=== PATIENT | male | born 1960 | race African-American/Black ===

== ENCOUNTER 2016-09-28 08:15 | Emergency (ER) | payer OTHER, MEDICARE ==
[~2016-09-28] VITALS: Ht 190.5 cm; Wt 102.1 kg
[~2016-09-28 08:15] MED LIST: ALBUTEROL 3 ML3 ML INH; AMITRIPTYLINE H50 M2 PO; ATORVASTATIN CA20 MG PO; ATORVASTATIN CA40 MG PO; CATAPRES 0.1MG0.1 MG PO; CHILDREN'S ASPI81 M1 PO; CYCLOBENZAPRINE10 M1 PO; FENOFIBRIC ACID45 M1 PO; FERROUS SULFAT325 M3 PO; FUROSEMIDE40 MG PO; LANTUS SOLOS100 U/ML SC; LASIX20 MG PO; LASIX80 M1 PO; LEVEMIR 10100 UNITS/ SC; LOPRESSOR 25MG25 MG PO; LOSARTAN POTASS50 MG PO; LYRICA100 M1 PO; MIRALAX17 GM PO; NEPHROCAPS1 TAB PO; NIFEDICAL XL60 MG PO; NOVOLOG 10300 UNITS/; NOVOLOG100 U/ML SC; OMEPRAZOLE20 M2 PO; PERCOCET 325 MG1 TA2 PO; PERCOCET 5-3251 EACH PO; PLAVIX 75MG TAB75 MG PO; PROCARDIA XL30 MG PO; RENVELA800 MG PO; Senokot S PO; TRAMADOL HCL50 M1 PO; TRANDATE-NORMO100 MG PO; Transderm Nitro 10MG (0.4 MG/Hr) Patch TOP; ZAROXOLYN 2.5M2.5 MG PO
[2016-09-28] MEDS ORDERED: RENVELA800 M1 PO ×2 (08:43→08:44)
[2016-09-28] MEDS ORDERED: ATORVASTATIN CA40 M1 PO (08:46)
[2016-09-28] MEDS ORDERED: TRIPHROCAPS SOFT1 MG PO (08:48)
[2016-09-28] MEDS ORDERED: CLONIDINE HCL0.1 MG PO (08:49)
[2016-09-28] MEDS ORDERED: NIFEDIPINE ER60 M2 PO (08:51)
--- NOTE | 2016-09-28 08:51 | ED CARDIAC/CP/PALPITATIONS ---
History of Present Illness General Chief Complaint: Chest Pain Stated Complaint: CP Source: patient Exam Limitations: no limitations Vital Signs & Intake/Output Vital Signs & Intake/Output Vital Signs Date Time Temp Pulse Resp B/P Pulse O2 O2 Flow FiO2 Ox Delivery Rate 09/28 1544 98.2 88 20 142/65 96 Room Air 09/28 1306 89 20 178/86 96 Room Air Room Air 09/28 1219 97.7 93 18 170/76 93 09/28 1211 97.5 09/28 0838 98 Room Air Room Air 09/28 0823 97.5 97 16 183/87 94 Room Air Allergies Coded Allergies: lactose (INTOLERANCE 09/15/15) Reconcile Medications Amitriptyline HCl 50 MG TABLET 1 TAB PO BID DEPRESSION (Reported) Aspirin (Children's Aspirin) 81 MG TAB.CHEW 1 TAB PO DAILY HEART HEALTH ( Reported) Atorvastatin Calcium 40 MG TABLET 1 TAB PO DAILY CHOLESTEROL (Reported) B Complex & C No.20/Folic Acid (Triphrocaps Softgel) 1 MG CAPSULE 1 CAP PO DAILY SUPPLEMENT (Reported) Clonidine HCl 0.1 MG TABLET 1 TAB PO BID BP (Reported) Clopidogrel Bisulfate (Clopidogrel) 75 MG TABLET 1 TAB PO DAILY BLOOD THINNER (Reported) Cyclobenzaprine HCl 10 MG TABLET 1 TAB PO QPM PRN SPASM Fenofibric Acid (Choline) (Fenofibric Acid) 45 MG CAPSULE.DR 1 CAP PO DAILY CHOLESTEROL (Reported) Ferrous Sulfate 325 MG (65 MG IRON) TABLET 1 TAB PO DAILY SUPPLEMENT ( Reported) Furosemide (Lasix) 80 MG TABLET 1 TAB PO DAILY EDEMA (Reported) Insulin Aspart, Recombinant (Novolog Flexpen) (Unknown Strength) INSULN.PEN ( Unknown Dose) SEE SLIDING SCALE DM (Reported) Insulin Glargine,Hum.rec.anlog (Lantus Solostar) 100 UNIT/ML (3 ML) INSULN.PEN 26 UNIT SC BID DM (Reported) Lidocaine HCl (Lidocaine HCl Viscous) 2 % SOLUTION 15 ML PO 4 TIMES/DAY REFLUX Nephro-Vitamins (Nephro-Ancelmo Tablet) 0.8 MG TABLET 1 TAB PO DAILY KIDNEYS ( Reported) Nifedipine (Nifedipine ER) 60 MG TAB.ER.24 1 TAB PO BID HEART (Reported) Nitroglycerin (Nitro-Dur) 0.4 MG/HOUR PATCH.TD24 1 PAT TOP DAILY CHEST PAIN ( Reported) Omeprazole 20 MG CAPSULE.DR 2 CAP PO DAILY GI (Reported) Pregabalin (Lyrica) 100 MG CAPSULE 1 CAP PO BID PAIN (Reported) Ranitidine HCl (Zantac) 150 MG TABLET 1 TAB PO BID ACID REFLUX Sevelamer Carbonate (Renvela) 800 MG TABLET 2 TAB PO BID KIDNEYS (Reported) Sevelamer Carbonate (Renvela) 800 MG TABLET 3 TAB PO 1200 KIDNEYS (Reported) Tamsulosin HCl 0.4 MG CAP.ER.24H 1 CAP PO DAILY PROSTATE (Reported) Tramadol HCl 50 MG TABLET 2 TAB PO BID PAIN (Reported) Triage Note: 56 Y/O MALE C/O MID STERNAL CHEST PAIN SINCE 5PM LAST NIGHT; STATES "I THOUGHT IT WAS HEART BURN BUT I CAN FEEL THE PAIN IN MY BACK NOW". REPORTS SOB WELL. PT STATES HE SLEPT "OFF AND ON" LAST NIGHT DUE TO PAIN. EKG COMPLETE PRIOR TO TRIAGE: NORMAL SINUS. PT DIALYSIS PATIENT, STATES HE WENT MONDAY DUE TO STORM, DUE TO GO AGAIN TOMORROW. L ARM RESTRICTED, BAND PLACED Triage Nurses Notes Reviewed? yes Onset: Abrupt Duration: day(s): ( 5PM LAST NIGHT) Timing: recent history Quality/Severity: moderate, severe Location: central, epigastric Radiation: back Activities at Onset: none HPI: 56-year-old male comes into emergency room with complaints of epigastric/central chest pain has been going on since 5 PM last night. Denies any shortness of breath. Denies any nausea vomiting. Denies any fever or chills. Denies any cough. Nothing seems to make the symptoms better. Lying flat makes it worse. Patient is on dialysis Monday and Saturdays. History of prior heart attack. Sees Dr. Mcmillan from cardiology. Symptoms are not worse with any type of exertion. Denies any other associated symptoms at this time. (JORGE WETZEL) Past History Travel History Traveled to [place] past 21 day No Medical History Any Pertinent Medical History? see below for history Neurological: NONE EENT: NONE Cardiovascular: CHF, hypertension, hyperlipidemia, STEMI Respiratory: pneumonia Gastrointestinal: NONE Hepatic: NONE Renal: chronic kidney disease, dialysis Musculoskeletal: NONE (arthritis) Psychiatric: NONE, depression Endocrine: diabetes, peripheral neuropathy Blood Disorders: NONE Cancer(s): NONE EXTRUSION FORMER/Reproductive: NONE History of MRSA: No History of VRE: No History of CDIFF: No Surgical History Surgical History: non-contributory Psychosocial History Who do you live with Patient/Self Services at Home Physical Therapy What is your primary language Chadian Tobacco Use: Current Not Daily Family History Family History, If Any: MOTHER Diabetes mellitus (DM) FH: chronic renal disease Hx Contributory? No (JORGE WETZEL) Review of Systems Review of Systems Constitutional: Reports: no symptoms. EENTM: Reports: no symptoms. Respiratory: Reports: no symptoms. Cardiovascular: Reports: see HPI. GI: Reports: no symptoms. Genitourinary: Reports: no symptoms. Musculoskeletal: Reports: no symptoms. Skin: Reports: no symptoms. Neurological/Psychological: Reports: no symptoms. Hematologic/Endocrine: Reports: no symptoms. Immunologic/Allergic: Reports: no symptoms. All Other Systems: Reviewed and Negative (JORGE WETZEL) Physical Exam Physical Exam General Appearance: well developed/nourished, no apparent distress, alert, awake Head: atraumatic, normal appearance Eyes: Bilateral: normal appearance, EOMI. Ears, Nose, Throat: normal pharynx, normal ENT inspection Neck: normal inspection, full range of motion Respiratory: normal breath sounds, no respiratory distress Cardiovascular: regular rate/rhythm Gastrointestinal: soft, tenderness (EPIGASTRIC) Back: normal inspection Extremities: normal inspection, normal range of motion Neurologic/Psych: awake, alert, oriented x 3, normal gait, normal mood/affect Skin: intact, normal color Core Measures ACS in differential dx? Yes Severe Sepsis Present: No Septic Shock Present: No (JORGE WETZEL) Progress Differential Diagnosis: AMI, aortic dissection, cholecystitis, CHF/pulm edema, hypovolemia, hyperthyroid, hyperventilation, musculoskeletal pain, myocarditis, pancreatitis, pericarditis, pneumothorax, pulmonary embolism, PUD/GERD, PVCs/ PACs, respiratory failure, sepsis, unstable angina, V-fib/V-Tach, WPW syndrome Plan of Care: Orders Procedure Date/time Status TROPONIN LEVEL 09/28 1315 Complete EKG 09/28 1315 Active LIPASE 09/28 0910 Complete AMYLASE 09/28 0910 Complete Telemetry/Landscape Horticulture Instructor 09/28 0831 Active TROPONIN LEVEL 09/28 0824 Complete COMPREHENSIVE METABOLIC PANEL 09/28 0824 Complete CBC WITHOUT DIFFERENTIAL 09/28 0824 Complete EKG 09/28 0817 Active Current Medications Sig/Nam Start time Last Medication Dose Stop Time Status Admin Ketorolac 60 MG ONCE ONE 09/28 1300 CAN Tromethamine 09/28 1301 (Toradol) Laboratory Tests 09/28/16 1330: Troponin I < 0.01 09/28/16 0910: Amylase Cancelled, Lipase Cancelled 09/28/16 0910: Anion Gap 18 H, Estimated GFR 5 L, BUN/Creatinine Ratio 3.8 L, Glucose 146 H , Calcium 8.7, Total Bilirubin 0.5, AST 19, ALT 27, Alkaline Phosphatase 75, Troponin I < 0.01, Total Protein 7.7, Albumin 4.3, Globulin 3.4, Albumin/ Globulin Ratio 1.3, Amylase 82, Lipase 116, CBC w Diff MAN DIFF ORDERED, RBC 4.50 L, MCV 93.0, MCH 30.5, RDW 13.6, MPV 8.5, Gran % 84.0 H, Lymphocytes % 9.0 L, Monocytes % 5.4, Eosinophils % 1.6, Basophils % 0 L, Absolute Granulocytes 7.4 H, Absolute Lymphocytes 0.8 L, Absolute Monocytes 0.5, Absolute Eosinophils 0.1, Absolute Basophils 0, Platelet Estimate VERIFIED BY SMEAR, Normocytic RBCs VERIFIED, Normochromic RBCs VERIFIED, PUBS MCHC 32.8 L Diagnostic Imaging: Viewed by Me: Radiology Read. Discussed w/RAD: Radiology Read. Radiology Impression: SERVICE DATE: 09/28/16 EXAM TYPE: RAD - XRY-CHEST XRAY, PA AND LATERAL EXAMINATION: XR CHEST CLINICAL INFORMATION: Chest pain COMPARISON: Previous chest x-rays most recent May 2016 TECHNIQUE: 2 views of the chest were obtained. FINDINGS: The cardiac and mediastinal contours are stable. The lungs are clear. There is no pleural effusion or pneumothorax. There are degenerative changes of the spine. IMPRESSION: No evidence for acute disease in the chest. Initial ED EKG: normal intervals, normal p-waves, normal sinus rhythm (94) Repeat EKG: unchanged (JORGE WETZEL) Departure Departure Disposition: HOME OR SELF CARE Condition: Stable Clinical Impression Primary Impression: Atypical chest pain Secondary Impressions: Gastritis Referrals: WAYNE GILLIS (PCP/Family) Additional Instructions: Take Viscous Lidocaine and Zantac as prescribed. Follow-up with [facility] for upper endoscopy. Return if any other concerns worsening symptoms. Please go over all results of today's visit with your primary care doctor. Contact your primary care doctor to let them know you were here in the emergency room. There may be nonspecific findings which may not be related to your visit today here in the emergency room but may require further evaluation and chronic monitoring by your primary care doctor. If you had a laceration today the chance of foreign body always remains. You should follow-up with your primary care doctor for recheck in 3-5 days for a wound check. If you had an x-ray done there is a chance that a fracture could have been missed on initial read and you should follow-up with your primary care doctor for repeat x-rays if symptoms persist. If your blood pressure was elevated here in the emergency room please have rechecked by her primary care doctor within the next 48 hours by your primary care doctor. If you were prescribed a narcotic here in the emergency room or any type of controlled substances you're not allowed to drive while taking this medication or operate any type of heavy machinery. Narcotics can make you feel lightheaded dizziness nausea and can cause constipation. You may need to clam picker a stool softener. Thank you for choosing [facility] emergency room. Please return to the emergency room immediately if you have any other concerns worsening of symptoms. Departure Forms: Customer Survey General Discharge Information Prescriptions: Current Visit Scripts Lidocaine HCl (Lidocaine HCl Viscous) 15 ML PO 4 TIMES/DAY #100 ML Ranitidine HCl (Zantac) 1 TAB PO BID #60 TAB Comments 09/28/2016 5:08:02 PM Patient clinically looks well. Nontoxic-appearing. In no apparent distress. Resting comfortably in room. Patient was reevaluated multiple times here in the emergency room. Cardiology Dr. Calderon was consult. Patient was seen and evaluated by Dr. Quinn. Patient's symptoms significantly improved after GI cocktail. I feel symptoms are most related to gastritis. Negative Merida sign. No suspicion for cholecystitis. Normal LFTs. Due to cardiac history two EKGs and troponins were performed which were both unchanged. Patient clinically feels much better. Patient is able to be discharged this time with follow-up with Dr. Mcmillan as well as primary care doctor. This patient required complex medical decision-making. As stated before patient was reevaluated multiple times and understands and agrees with plan of care. Return if any other concerns. (JORGE WETZEL) Departure Comments 09/28/16 I saw and personally examined the patient and I agree with the PAs evaluation. He has 2 negative troponins. 2 unchanged EKGs. His symptoms improved with GI cocktail. He'll follow-up with his bung remover this week. Return to the emergency department if worse. (RYAN DAVID,CHELSEY Lopez) Critical Care Note Critical Care Note Critical Care Time: non-applicable (JORGE WETZEL)
[2016-09-28] MEDS ORDERED: TAMSULOSIN HCL0.4 M1 PO (08:52)
[2016-09-28] MEDS ORDERED: LANTUS SOL100 UNIT/1 SC (08:53)
[2016-09-28] MEDS ORDERED: NOVOLOG FL100 UNIT/1 (08:54)
[2016-09-28] MEDS ORDERED: CLOPIDOGREL75 M1 PO (08:57)
[2016-09-28] MEDS ORDERED: NEPHRO-VITE TA0.8 MG PO (08:59)
[2016-09-28] MEDS ORDERED: NITRO-DUR1 EAC3 TOP (09:01)
--- NOTE | 2016-09-28 09:05 | RADIOLOGY REPORT ---
EXAMINATION: XR CHEST CLINICAL INFORMATION: Chest pain COMPARISON: Previous chest x-rays most recent May 2016 TECHNIQUE: 2 views of the chest were obtained. FINDINGS: The cardiac and mediastinal contours are stable. The lungs are clear. There is no pleural effusion or pneumothorax. There are degenerative changes of the spine. IMPRESSION: No evidence for acute disease in the chest.
[2016-09-28 09:17] LABS: ABSOLUTE BASOPHIL COUNT 0 /CUMM (0.0-0.2); ABSOLUTE EOSINOPHIL COUNT 0.1 /CUMM (0.0-0.7); ABSOLUTE GRANULOCYTE CT 7.4 /CUMM (1.4-6.5); ABSOLUTE LYMPH COUNT 0.8 /CUMM (1.2-3.4); ABSOLUTE MONOCYTE COUNT 0.5 /CUMM (0.10-0.60); BASOPHIL % 0 % (0.0-2.0); EOSINOPHIL % 1.6 % (0-5); HEMATOCRIT 41.9 % (42-52); MEAN CORPUSCULAR HGB 30.5 PG (27.0-31.0); MEAN CORPUSCULAR HGB CONC 32.8 G/DL (33.0-37.0); MEAN PLATELET VOLUME 8.5 FL (7.4-10.4); PLATELET COUNT 150 /CUMM (130-400); RBC DISTRIBUTION WIDTH 13.6 % (11.5-14.5); WHITE BLOOD CELL COUNT 8.8 /CUMM (4.8-10.8)
[2016-09-28] MEDS ORDERED: LIDOCAINE HCL V15 ML PO (15:28)
[2016-09-28] MEDS ORDERED: ZANTAC150 M1 PO (15:28)
[2016-09-28 15:44] VITALS: BP 142/65
== END 2016-09-28 16:09 ==
LOC: ERH 08:15
PROVIDERS: Physician Assistant Medical
DX: R07.89 Other chest pain (principal); K29.70 Gastritis, unspecified, without bleeding
CPT/HCPCS: 93005; 93010; 96374; 96375; J1885

== ENCOUNTER 2016-09-30 13:13 | Emergency (ER) | payer OTHER, MEDICARE ==
[~2016-09-30] VITALS: Ht 190.5 cm; Wt 102.1 kg
[~2016-09-30 13:13] MED LIST changes: +ATORVASTATIN CA40 M1 PO; +CLONIDINE HCL0.1 MG PO; +CLOPIDOGREL75 M1 PO; +LANTUS SOL100 UNIT/1 SC; +LIDOCAINE HCL V15 ML PO; +NEPHRO-VITE TA0.8 MG PO; +NIFEDIPINE ER60 M2 PO; +NITRO-DUR1 EAC3 TOP; +NOVOLOG FL100 UNIT/1; +RENVELA800 M1 PO; +TAMSULOSIN HCL0.4 M1 PO; +TRIPHROCAPS SOFT1 MG PO; +ZANTAC150 M1 PO
--- NOTE | 2016-09-30 13:52 | ED GI/GU/ABDOMINAL COMPLAINT ---
History of Present Illness General Chief Complaint: General Adult Stated Complaint: SENT IN BY MD FOR CT SCAN Source: patient Exam Limitations: no limitations Vital Signs & Intake/Output Vital Signs & Intake/Output Vital Signs Date Time Temp Pulse Resp B/P Pulse O2 O2 Flow FiO2 Ox Delivery Rate 09/30 1502 97.5 83 20 115/64 95 Room Air 09/30 1317 98.2 91 24 162/71 94 Room Air Allergies Coded Allergies: lactose (INTOLERANCE 09/15/15) Reconcile Medications Amitriptyline HCl 50 MG TABLET 1 TAB PO BID DEPRESSION (Reported) Aspirin (Children's Aspirin) 81 MG TAB.CHEW 1 TAB PO DAILY HEART HEALTH ( Reported) Atorvastatin Calcium 40 MG TABLET 1 TAB PO DAILY CHOLESTEROL (Reported) B Complex & C No.20/Folic Acid (Triphrocaps Softgel) 1 MG CAPSULE 1 CAP PO DAILY SUPPLEMENT (Reported) Clonidine HCl 0.1 MG TABLET 1 TAB PO BID BP (Reported) Clopidogrel Bisulfate (Clopidogrel) 75 MG TABLET 1 TAB PO DAILY BLOOD THINNER (Reported) Cyclobenzaprine HCl 10 MG TABLET 1 TAB PO QPM PRN SPASM Fenofibric Acid (Choline) (Fenofibric Acid) 45 MG CAPSULE.DR 1 CAP PO DAILY CHOLESTEROL (Reported) Ferrous Sulfate 325 MG (65 MG IRON) TABLET 1 TAB PO DAILY SUPPLEMENT ( Reported) Furosemide (Lasix) 80 MG TABLET 1 TAB PO DAILY EDEMA (Reported) Insulin Aspart, Recombinant (Novolog Flexpen) (Unknown Strength) INSULN.PEN ( Unknown Dose) SEE SLIDING SCALE DM (Reported) Insulin Glargine,Hum.rec.anlog (Lantus Solostar) 100 UNIT/ML (3 ML) INSULN.PEN 26 UNIT SC BID DM (Reported) Lidocaine HCl (Lidocaine HCl Viscous) 2 % SOLUTION 15 ML PO 4 TIMES/DAY REFLUX Nephro-Vitamins (Nephro-Ancelmo Tablet) 0.8 MG TABLET 1 TAB PO DAILY KIDNEYS ( Reported) Nifedipine (Nifedipine ER) 60 MG TAB.ER.24 1 TAB PO BID HEART (Reported) Nitroglycerin (Nitro-Dur) 0.4 MG/HOUR PATCH.TD24 1 PAT TOP DAILY CHEST PAIN ( Reported) Omeprazole 20 MG CAPSULE.DR 2 CAP PO DAILY GI (Reported) Pregabalin (Lyrica) 100 MG CAPSULE 1 CAP PO BID PAIN (Reported) Ranitidine HCl (Zantac) 150 MG TABLET 1 TAB PO BID ACID REFLUX Sevelamer Carbonate (Renvela) 800 MG TABLET 2 TAB PO BID KIDNEYS (Reported) Sevelamer Carbonate (Renvela) 800 MG TABLET 3 TAB PO 1200 KIDNEYS (Reported) Tamsulosin HCl 0.4 MG CAP.ER.24H 1 CAP PO DAILY PROSTATE (Reported) Tramadol HCl 50 MG TABLET 2 TAB PO BID PAIN (Reported) Triage Note: PT SENT IN BY DR HIGUERA FOR CAT SCAN TO RULE OUT DISSECTION.. PT STATES PAIN STARTED ON MONDAY AND WAS SEEN HERE ON MON FOR SAME..PT HAD DIALYSIS YESTERDAY. PT ALSO HAS HX OF CHF.. Triage Nurses Notes Reviewed? yes HPI: Patient presents for evaluation of a severe burning epigastric and chest pain that gets worse with eating. Patient states he was being evaluated by his GI specialist and was sent to the emergency department for evaluation for concern of an aortic dissection presumably. He should states he was sent for a CAT scan. He states he was evaluated in the emergency department on Monday for a similar pain that responded to a GI cocktail. Patient states he has had no pedal intake over the past 3 days because of the burning pain) it worsens with eating). He does get the pain occasionally when not eating. The pain has been intermittent resolves completely at times. Past History Travel History Traveled to [place] past 21 day No Medical History Any Pertinent Medical History? 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 No Review of Systems Review of Systems Constitutional: Reports: no symptoms. EENTM: Reports: no symptoms. Respiratory: Reports: no symptoms. Cardiovascular: Reports: no symptoms. GI: Reports: see HPI. Genitourinary: Reports: no symptoms. Musculoskeletal: Reports: no symptoms. Skin: Reports: no symptoms. Neurological/Psychological: Reports: no symptoms. Hematologic/Endocrine: Reports: no symptoms. Immunologic/Allergic: Reports: no symptoms. All Other Systems: Reviewed and Negative Physical Exam Physical Exam Gastrointestinal: SEE BELOW Comments: Gen.: Well-nourished, well-developed, no acute respiratory distress. Head: Normocephalic, atraumatic. Eyes: Normal inspection bilaterally Ears: Normal inspection bilaterally Nose: Normal inspection Throat/mouth : Moist mucosa Neck: Supple, full range of motion, no goiter Heart: Regular rate and rhythm, no murmurs rubs or gallops Lungs: Clear to auscultation bilaterally with normal air entry Chest: Nontender Back: Normal range of motion Abdomen: Soft, mild tenderness diffusely without rebound or guarding, nondistended, normal bowel sounds, periumbilical easily reducible hernia, paucity of the anterior abdominal wall Extremities: Normal range of motion grossly, equal radial pulses Neurologic: Cranial nerves grossly intact, speech is clear Skin: warm and dry Psychiatric: Calm, cooperative, no apparent delusions or hallucinations Core Measures ACS in differential dx? No Severe Sepsis Present: No Septic Shock Present: No Progress Differential Diagnosis: ACID REFLUX, MUSCULOSKELETAL CHEST PAIN, HIATAL HERNIA Plan of Care: Orders Procedure Date/time Status EKG 09/30 1323 Active Diagnostic Imaging: Discussed w/RAD: CT Scan. Radiology Impression: PATIENT: JACKIE BERRY PRESENT AGE: 56 PATIENT ACCOUNT NO: [id number] : 56 LOCATION: [facility] ORDERING PHYSICIAN: JEFE AMBROCIO MD SERVICE DATE: 09/30/16 EXAM TYPE: CAT - CT CHEST WO IV CONTRAST EXAMINATION: CT CHEST WITHOUT CONTRAST CLINICAL INFORMATION: Aortic aneurysm. Chest pain. COMPARISON: CT chest 10/27/2013. TECHNIQUE: Multidetector volumetric CT imaging of the chest was done. Axial MIP volume rendering provided. Sagittal and coronal reformatted images were obtained. No IV contrast. DLP: 360.83 mGy-cm FINDINGS: VASCULAR: There is no aneurysm of the aorta. The ascending aorta measures 3.2 cm transverse. The aortic arch measures 3 cm transverse. The aorta at the diaphragm measures 2.4 cm. There are small calcifications of the aorta at the arch of the aorta. There is calcification of the origin of the great vessels. There is coronary artery calcifications. LUNGS: Subpleural emphysematous lucencies of the lung apices greater on right than left. There is a 3 mm nodule in the right upper lobe axial image 194 (5). No acute change. No infiltrate. The extensive alveolar opacities seen on the CAT scan of 10/27/2013 have resolved entirely. No bronchiectasis. Central bronchial airways are open. MEDIASTINUM: No mass. No mediastinal adenopathy. No pericardial effusion. PLEURA: There is no pleural effusion. No pleural mass or thickening. AXILLA: No lymphadenopathy. UPPER ABDOMEN: Small portion of the fundus of the gallbladder is visualized and there is hypodensity within the lumen of small gallstones. The adrenal glands are normal. OSSEOUS STRUCTURES: Multilevel degenerative change of the spine with endplate spurs and disc height narrowing. IMPRESSION: 1. No aneurysm of the aorta. No acute change of chest. 2. Emphysematous lucency of lungs. 3. 3 mm nodule right upper lobe. Various management parameters for solitary pulmonary nodules are in the literature. According to the Fleischner Society, recommendations for pulmonary nodules are as follows: Nodule size < or = to 4 mm in HIGH RISK PATIENTS: Follow up CT at 12 months; if unchanged, no further follow up. DICTATED BY: OSEI DENISE MD DATE/TIME DICTATED:09/30/161617 LITHOGRAPHIC PLATE MAKER:MAXWELL DATE/TIME TRANSCRIBED:09/30/161617 CONFIDENTIAL, DO NOT COPY WITHOUT APPROPRIATE AUTHORIZATION. <Electronically signed in Other Vendor System> SIGNED BY: OSEI DENISE MD 09/30/16 1653 Initial ED EKG: NSR, rate (85) Prior EKG: unchanged Comments: 09/30/2016 3:25:09 PM Jackie is feeling better after the GI cocktail although he still has residual pain. After discussion with him he felt it would be reasonable to do the CAT scan just to be sure there is nothing else besides acid reflux. 09/30/2016 4:56:40 PM patient's CAT scan is unremarkable. Given the patient's description of pain, his prior episode and the lack of any aortic findings (this was a noncontrast CAT scan), I doubt aortic dissection. Departure Departure Disposition: HOME OR SELF CARE Condition: Stable Clinical Impression Primary Impression: Gastroesophageal reflux disease Qualifiers: Esophagitis presence: esophagitis presence not specified Qualified Code: K21.9 - Gastro-esophageal reflux disease without esophagitis Secondary Impressions: Lung nodules Referrals: WAYNE GILLIS (PCP/Family) Additional Instructions: Please begin the medications as prescribed by your GI specialist. [place] diet. Avoid lying flat after meals and large meals. Avoid coffee. Follow-up with your primary care doctor on Monday for reevaluation. Return if any concerns or sudden worsening. Please note that there might be incidental findings in your evaluation that are unrelated to the current emergency department visit. Please notify your primary care doctor about this emergency department visit in order to obtain and review all of the testing performed so that these incidental findings can be monitored as needed. If you had an x-ray performed, please understand that some fractures may not be seen on the initial set of x-rays. If your symptoms persist you might need a repeat set of x-rays to check for such a fracture. If you had a laceration evaluated, please understand that foreign bodies such as glass or wood may not be visible to the naked eye or on plain x-rays. If the wound becomes red, swollen, increasingly more painful or if there is any drainage from the wound, please have it reevaluated by a physician for the possibility of a retained foreign body. Thank you for choosing the [facility] Emergency Department for your care. It was a pleasure to serve you today. Jefe Ambrocio M.D. [facility] Departure Forms: Customer Survey General Discharge Information
--- NOTE | 2016-09-30 16:53 | CT SCAN REPORT ---
EXAMINATION: CT CHEST WITHOUT CONTRAST CLINICAL INFORMATION: Aortic aneurysm. Chest pain. COMPARISON: CT chest 10/27/2013. TECHNIQUE: Multidetector volumetric CT imaging of the chest was done. Axial MIP volume rendering provided. Sagittal and coronal reformatted images were obtained. No IV contrast. DLP: 360.83 mGy-cm FINDINGS: VASCULAR: There is no aneurysm of the aorta. The ascending aorta measures 3.2 cm transverse. The aortic arch measures 3 cm transverse. The aorta at the diaphragm measures 2.4 cm. There are small calcifications of the aorta at the arch of the aorta. There is calcification of the origin of the great vessels. There is coronary artery calcifications. LUNGS: Subpleural emphysematous lucencies of the lung apices greater on right than left. There is a 3 mm nodule in the right upper lobe axial image 194 (5). No acute change. No infiltrate. The extensive alveolar opacities seen on the CAT scan of 10/27/2013 have resolved entirely. No bronchiectasis. Central bronchial airways are open. MEDIASTINUM: No mass. No mediastinal adenopathy. No pericardial effusion. PLEURA: There is no pleural effusion. No pleural mass or thickening. AXILLA: No lymphadenopathy. UPPER ABDOMEN: Small portion of the fundus of the gallbladder is visualized and there is hypodensity within the lumen of small gallstones. The adrenal glands are normal. OSSEOUS STRUCTURES: Multilevel degenerative change of the spine with endplate spurs and disc height narrowing. IMPRESSION: 1. No aneurysm of the aorta. No acute change of chest. 2. Emphysematous lucency of lungs. 3. 3 mm nodule right upper lobe. Various management parameters for solitary pulmonary nodules are in the literature. According to the Fleischner Society, recommendations for pulmonary nodules are as follows: Nodule size < or = to 4 mm in HIGH RISK PATIENTS: Follow up CT at 12 months; if unchanged, no further follow up.
[2016-09-30 17:07] VITALS: BP 148/72
== END 2016-09-30 17:13 ==
LOC: ERH 13:13
DX: K21.9 Gastro-esophageal reflux disease without esophagitis (principal); R91.1 Solitary pulmonary nodule
CPT/HCPCS: 93005; 93010

== ENCOUNTER 2016-11-15 17:31 | Emergency (ER) | payer OTHER, MEDICARE ==
[2016-11-15 17:43] VITALS: BP 113/71
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
[2016-11-15] MEDS ORDERED: PERCOCET 5-3251 EACH PO (18:07)
== END 2016-11-15 18:17 ==
LOC: ERH 17:31
DX: M54.5 Low back pain (principal)